=== PATIENT | male | born 1980 | race Caucasian/White ===

== ENCOUNTER 2022-02-13 19:02 | Emergency (ER) | payer BC ==
[2022-02-13] MEDS ORDERED: Boostrix 0.5 ML (Tdap) VIAL ONE (19:39)
== END 2022-02-13 19:57 | disposition home or self-care (01) ==
LOC: BURERS 19:02
DX: S05.02XA Injury of conjunctiva and corneal abrasion without foreign body, left eye, initial encounter (principal); W22.8XXA Striking against or struck by other objects, initial encounter
CPT/HCPCS: 90471; 90715